=== PATIENT | female | born 1995 | race Hispanic/Latino ===

== ENCOUNTER 2023-04-11 20:58 | Emergency (ER) | payer SELFPAY ==
[~2023-04-11] VITALS: Ht 167.6 cm; Wt 54.4 kg
[2023-04-11 22:31] VITALS: BP 120/72
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
== END 2023-04-11 22:35 | disposition home or self-care (01) ==
LOC: ED 20:58
DX: F15.10 Other stimulant abuse, uncomplicated (principal)
CPT/HCPCS: 99284; A9270-GY